=== PATIENT | male | born 1955 | race American Indian/Alaskan Native ===

== ENCOUNTER 2018-06-04 13:25 | Inpatient (IN) | payer MEDICAID ==
[2018-06-04] MEDS ORDERED: NACL 0.9% 1000 ML IV ONE (13:47)
--- NOTE | 2018-06-04 13:47 | Emergency Department Report ---
Blank Doc - Documentation Documentation: This is a 62-year-old male that presents with nausea vomiting and abdominal pain x1 month. This initial assessment diagnostic orders/clinical plan/treatment(s) is/are subject to change based on patient's health status, clinical progression and re- assessment by fellow clinical providers in the ED. Further treatment and workup at subsequent clinical providers discretion. Patient/guardians urged not to elope from ED s their condition may be serious if not clinically assessed and managed. Initial orders include: 1-Patient sent to MAIN ED for further evaluation and treatment 2- Code sepsis initiated 3- Labs 4- EKG 5- UA
[2018-06-04 14:43] LABS: Hematocrit 24.1 % (35.5-45.6); Hemoglobin 7.8 gm/dl (11.8-15.2); Mean Corpuscular HGB Conc 32 % (32-34); Mean Corpuscular Volume 99 fl (84-94); Platelet Count 446 K/mm3 (140-440); Red Blood Count 2.44 M/mm3 (3.65-5.03); Red Cell Distribution Width 19.5 % (13.2-15.2)
--- NOTE | 2018-06-04 14:53 | XRay Report ---
AP CHEST: HISTORY: Sepsis No comparison. Trace right pleural effusion or mild chronic right pleural thickening is noted at the right costophrenic angle. The lungs are mildly hyperinflated but clear. No evidence for pneumonia, mass or pneumothorax. Normal heart size and pulmonary vessels. The bony structures are osteopenic. Chronic left clavicle deformity is noted. IMPRESSION: Emphysematous changes. Chronic pleural thickening versus small right pleural effusion. No acute cardiopulmonary process is identified.
[2018-06-04 15:06] LABS: Alanine Aminotransferase 21 units/L (7-56); BUN/Creatinine Ratio 18; Blood Urea Nitrogen 9 mg/dL (9-20); Calcium 7.6 mg/dL (8.4-10.2); Hemolysis Index 50
[2018-06-04 15:48] LABS: Eosinophils % (Manual) 0 % (0.0-4.3); Total Cells Counted 100
[2018-06-04 15:49] LABS: Large Platelets 1+
[2018-06-04 15:50] LABS: Target Cells 2+
[2018-06-04 15:51] LABS: Anisocytosis 1+; Platelet Estimate Consistent w Auto
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
[2018-06-04] MEDS ORDERED: NACL 0.9% 1000 ML 1,000 ML IV ONE (18:05)
[2018-06-04 20:34] LABS: Bilirubin,Urine NEG (Negative); Blood,Urine NEG (Negative); Color,Urine Amber (Yellow); Mucus,Urine FEW /HPF
[2018-06-04] MEDS ORDERED: NACL 0.9% 1000 ML 1,000 ML ONE (21:39)
[2018-06-04] MEDS ORDERED: ZOSYN/NS 3.375GM/50ML 3.375 GM/50 ML BAG IV SCH (22:00)
[2018-06-04] MEDS ORDERED: SODIUM CHLORIDE FLUSH SYRINGE 10 ML IV PRN (22:02)
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
[2018-06-04] MEDS ORDERED: NACL 0.9% 1000 ML 1,000 ML IV SCH (23:00)
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
[2018-06-05] MEDS: FLAGYL PO SCH ×4 (06:20→22:21)
[2018-06-05 06:38] LABS: Basophils % (Auto) 0.3 % (0.0-1.8); Eosinophils % (Auto) 0.7 % (0.0-4.3); Lymphocytes # (Auto) 2.1 K/mm3 (1.2-5.4); Mean Corpuscular HGB Conc 34 % (32-34); Mean Corpuscular Volume 97 fl (84-94); Monocytes # (Auto) 0.6 K/mm3 (0.0-0.8); Monocytes % (Auto) 10.5 % (0.0-7.3); Platelet Count 339 K/mm3 (140-440)
[2018-06-05 06:46] LABS: BUN/Creatinine Ratio 14; Blood Urea Nitrogen 7 mg/dL (9-20); Calcium 6.5 mg/dL (8.4-10.2); Hemolysis Index 3
[2018-06-05 06:58] LABS: Hematocrit 17.4 % (35.5-45.6); Hemoglobin 5.9 gm/dl (11.8-15.2)
[2018-06-05] MEDS ORDERED: NACL 0.9% 500 ML 500 ML IV ONE (06:59)
[2018-06-05] MEDS ORDERED: LOVENOX SUB-Q SCH (10:00)
[2018-06-05] MEDS: SODIUM CHLORIDE FLUSH SYRINGE 10 ML IV SCH ×2 (10:14→22:18)
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
[2018-06-05] MEDS ORDERED: MAGNESIUM SULFATE 4GM/100ML 4 GM/100 ML BAG IV ONE (12:47)
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
[2018-06-05] MEDS: KCL 10MEQ/100ML 10 MEQ/100 ML BAG IV SCH ×2 (18:04→20:07)
[2018-06-05] MEDS: D5W/0.45% NACL/KCL 20 MEQ 20 MEQ/1,000 ML BAG IV SCH (18:14)
[2018-06-05 18:36] LABS: Hematocrit 29.7 % (35.5-45.6); Hemoglobin 10.7 gm/dl (11.8-15.2)
[2018-06-05] MEDS: PROTONIX IV SCH ×2 (19:14→22:18)
[2018-06-06] MEDS: FLAGYL PO SCH ×3 (05:23→21:36)
[2018-06-06] MEDS: D5W/0.45% NACL/KCL 20 MEQ 20 MEQ/1,000 ML BAG IV SCH (05:23)
[2018-06-06 06:41] LABS: Hematocrit 33.5 % (35.5-45.6); Hemoglobin 10.8 gm/dl (11.8-15.2); Mean Corpuscular HGB Conc 32 % (32-34); Mean Corpuscular Volume 99 fl (84-94); Platelet Count 283 K/mm3 (140-440); Red Blood Count 3.39 M/mm3 (3.65-5.03); Red Cell Distribution Width 19.7 % (13.2-15.2)
[2018-06-06 06:46] LABS: BUN/Creatinine Ratio 13; Blood Urea Nitrogen 5 mg/dL (9-20); Calcium 6.8 mg/dL (8.4-10.2); Hemolysis Index 29; Iron 36 ug/dL (49-181)
[2018-06-06 06:49] LABS: Basophils # (Auto) 0.1 K/mm3 (0.0-0.1); Basophils % (Auto) 0.8 % (0.0-1.8); Eosinophils # (Auto) 0.2 K/mm3 (0.0-0.4); Eosinophils % (Auto) 2.4 % (0.0-4.3); Lymphocytes # (Auto) 2.5 K/mm3 (1.2-5.4); Lymphocytes % (Auto) 35.1 % (13.4-35.0); Monocytes # (Auto) 0.6 K/mm3 (0.0-0.8); Monocytes % (Auto) 9.1 % (0.0-7.3)
[2018-06-06 07:02] LABS: Hepatitis B Surface Antigen Non-Reactive (Negative); Hepatitis C Virus Antibody Reactive (NonReactive)
[2018-06-06 08:02] LABS: Total Iron Binding Capacity 46 mcg/dL (250-450)
[2018-06-06] MEDS: PROTONIX IV SCH ×2 (11:37→21:36)
[2018-06-06] MEDS: SODIUM CHLORIDE FLUSH SYRINGE 10 ML IV SCH ×2 (11:38→21:37)
[2018-06-06] MEDS: LEVAQUIN 750MG/150ML 750 MG/150 ML BAG IV SCH ×2 (11:38)
--- NOTE | 2018-06-06 12:59 | Gastroenterology Progress Note ---
Assessment and Plan 1. Anemia - macrocytic anemia; mixed pattern with iron studies with possibly iron deficiency component. no signs of overt gi bleeding; s/p blood transfusions with stable h/h afterwards 2. Nausea/vomiting - seems improved, tolerating liquids; UGI with SBFT pending 3. Colitis - seen on imaging; diarrhea today with stool studies pending 4. History of hepatitis c Subjective Date of service: 06/06/18 Principal diagnosis: anemia, hypotension Interval history: pt seen and examined. denies abd pain; tolerating clears. reports having some liquid stools today after po intake. no gi bleeding Objective - Exam Narrative Exam: gen: chronically ill appearing male, nad cv: rrr Lungs: ctab, non labored Abd: soft, mild dist, nt, +bs Ext: no edema - Constitutional Vitals: Temp Pulse Resp BP Pulse Ox 98.3 F 105 H 20 110/81 99 06/06/18 08:03 06/06/18 12:20 06/06/18 10:00 06/06/18 12:20 06/06/18 12:20 - Labs CBC & Chem 7: 06/06/18 04:57 06/06/18 04:57 Labs: Laboratory Results - last 24 hr 06/05/18 06/05/18 06/06/18 07:00 18:23 04:57 WBC 7.1 RBC 3.39 L Hgb 10.7 L D 10.8 L Hct 29.7 L D 33.5 L MCV 99 H MCH 32 MCHC 32 RDW 19.7 H Plt Count 283 Lymph % (Auto) 35.1 H [place] % (Auto) 9.1 H Eos % (Auto) 2.4 Baso % (Auto) 0.8 Lymph # 2.5 [place] # 0.6 Eos # 0.2 Baso # 0.1 Seg Neutrophils % 52.6 Seg Neutrophils # 3.7 Sodium Potassium Chloride Carbon Dioxide Anion Gap BUN Creatinine Estimated GFR BUN/Creatinine Ratio Glucose Calcium Magnesium Iron TIBC Ferritin Vitamin B12 Folate Hepatitis A IgM Ab Hep Bs Antigen Hep B Core IgM Ab Hepatitis C Antibody Crossmatch See Detail 06/06/18 06/06/18 06/06/18 04:57 04:57 04:57 WBC RBC Hgb Hct MCV MCH MCHC RDW Plt Count Lymph % (Auto) [place] % (Auto) Eos % (Auto) Baso % (Auto) Lymph # [place] # Eos # Baso # Seg Neutrophils % Seg Neutrophils # Sodium 135 L Potassium 3.8 Chloride 109.5 H Carbon Dioxide 16 L Anion Gap 13 BUN 5 L Creatinine 0.4 L Estimated GFR > 60 BUN/Creatinine Ratio 13 Glucose 100 Calcium 6.8 L Magnesium 2.80 H Iron 36 L TIBC 46 L Ferritin 1653.0 H Vitamin B12 > 2000 H Folate Hepatitis A IgM Ab Hep Bs Antigen Hep B Core IgM Ab Hepatitis C Antibody Crossmatch 06/06/18 06/06/18 04:57 04:57 WBC RBC Hgb Hct MCV MCH MCHC RDW Plt Count Lymph % (Auto) [place] % (Auto) Eos % (Auto) Baso % (Auto) Lymph # [place] # Eos # Baso # Seg Neutrophils % Seg Neutrophils # Sodium Potassium Chloride Carbon Dioxide Anion Gap BUN Creatinine Estimated GFR BUN/Creatinine Ratio Glucose Calcium Magnesium Iron TIBC Ferritin Vitamin B12 Folate 11.57 Hepatitis A IgM Ab Non-reactive Hep Bs Antigen Non-reactive Hep B Core IgM Ab Non-reactive Hepatitis C Antibody Reactive A Crossmatch
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
[2018-06-07 05:48] LABS: Basophils % (Auto) 0.5 % (0.0-1.8); Eosinophils % (Auto) 0.2 % (0.0-4.3); Lymphocytes # (Auto) 2.1 K/mm3 (1.2-5.4); Lymphocytes % (Auto) 21.1 % (13.4-35.0); Mean Corpuscular HGB Conc 34 % (32-34); Mean Corpuscular Volume 95 fl (84-94); Monocytes # (Auto) 0.7 K/mm3 (0.0-0.8); Monocytes % (Auto) 6.9 % (0.0-7.3); Platelet Count 289 K/mm3 (140-440); Red Blood Count 3.47 M/mm3 (3.65-5.03); Red Cell Distribution Width 18.5 % (13.2-15.2)
[2018-06-07] MEDS: KCL 10 MEQ in D5NS 1,000 ML IV SCH (05:58)
[2018-06-07] MEDS: FLAGYL PO SCH ×3 (05:58→21:16)
[2018-06-07 06:05] LABS: BUN/Creatinine Ratio 4; Blood Urea Nitrogen 2 mg/dL (9-20); Calcium 6.8 mg/dL (8.4-10.2); Hemolysis Index 8
[2018-06-07] MEDS: LEVAQUIN 750MG/150ML 750 MG/150 ML BAG IV SCH (09:41)
[2018-06-07] MEDS: PROTONIX IV SCH ×2 (09:42→21:16)
[2018-06-07] MEDS: SODIUM CHLORIDE FLUSH SYRINGE 10 ML IV SCH ×2 (09:43→21:16)
[2018-06-07] MEDS ORDERED: NACL 0.9% 500 ML 500 ML IV ONE (10:15)
--- NOTE | 2018-06-07 11:10 | Gastroenterology Progress Note ---
Assessment and Plan 1. Anemia - macrocytic anemia; mixed pattern with iron studies with possibly iron deficiency component. no signs of overt gi bleeding; s/p blood transfusions with stable h/h afterwards 2. Nausea/vomiting - episode last night, tolerating some solids but with early satiety; UGI with SBFT pending for tomorrow. consider EGD based on progress 3. Colitis - on imaging but no significant diarrhea, abd pain or hematochezia; stool studies pending 4. History of hepatitis c Subjective Date of service: 06/07/18 Principal diagnosis: anemia, hypotension Interval history: pt seen and examined. no bm's today; tolerating po but having early satiety. de nies abd pain Objective - Exam Narrative Exam: Gen: chronically ill appearing, frail male CV: tachycardic, s1 and s2 Lungs: ctab abd: mild dist, nt, hypoactive bs - Constitutional Vitals: Temp Pulse Resp BP Pulse Ox 98.8 F 105 H 18 85/59 95 06/07/18 07:55 06/07/18 07:55 06/07/18 07:55 06/07/18 07:55 06/07/18 10:00 - Labs CBC & Chem 7: 06/07/18 04:39 06/07/18 04:39 Labs: Laboratory Results - last 24 hr 06/07/18 06/07/18 04:39 04:39 WBC 10.1 RBC 3.47 L Hgb 11.0 L Hct 33.0 L MCV 95 H MCH 32 MCHC 34 RDW 18.5 H Plt Count 289 Lymph % (Auto) 21.1 [place] % (Auto) 6.9 Eos % (Auto) 0.2 Baso % (Auto) 0.5 Lymph # 2.1 [place] # 0.7 Eos # 0.0 Baso # 0.0 Seg Neutrophils % 71.3 H Seg Neutrophils # 7.2 Sodium 136 L Potassium 3.6 Chloride 109.1 H Carbon Dioxide 17 L Anion Gap 14 BUN 2 L Creatinine 0.5 L Estimated GFR > 60 BUN/Creatinine Ratio 4 Glucose 104 H Calcium 6.8 L Magnesium 1.70
[2018-06-07] MEDS: SODIUM BICARBONATE PO SCH ×2 (13:26→21:16)
[2018-06-07] MEDS ORDERED: NACL 0.9% 500 ML 500 ML ONE (13:34)
[2018-06-07] MEDS ORDERED: MILK OF MAGNESIA PO PRN (13:59)
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
[2018-06-08] MEDS: FLAGYL PO SCH ×3 (05:15→21:29)
[2018-06-08] MEDS: TYLENOL PO PRN ×2 (05:15→11:32)
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
[2018-06-08] MEDS: SODIUM BICARBONATE PO SCH ×3 (11:29→21:30)
[2018-06-08] MEDS: LEVAQUIN 750MG/150ML 750 MG/150 ML BAG IV SCH (15:18)
[2018-06-08] MEDS: SODIUM CHLORIDE FLUSH SYRINGE 10 ML IV SCH ×2 (15:21→21:39)
[2018-06-08] MEDS: PROTONIX PO SCH ×2 (15:21→21:29)
[2018-06-08 16:15] LABS: Basophils % (Auto) 0.2 % (0.0-1.8); Eosinophils % (Auto) 0.1 % (0.0-4.3); Hematocrit 34.2 % (35.5-45.6); Hemoglobin 11.3 gm/dl (11.8-15.2); Lymphocytes % (Auto) 14.9 % (13.4-35.0); Mean Corpuscular HGB Conc 33 % (32-34); Mean Corpuscular Volume 97 fl (84-94); Monocytes # (Auto) 0.5 K/mm3 (0.0-0.8); Monocytes % (Auto) 3.6 % (0.0-7.3); Platelet Count 206 K/mm3 (140-440); Red Blood Count 3.53 M/mm3 (3.65-5.03); Red Cell Distribution Width 19.1 % (13.2-15.2)
[2018-06-08 16:30] LABS: Alanine Aminotransferase 8 units/L (7-56); Albumin 1.4 g/dL (3.9-5); BUN/Creatinine Ratio 6; Bilirubin,Direct 0.6 mg/dL (0-0.2); Blood Urea Nitrogen 3 mg/dL (9-20); Calcium 6.9 mg/dL (8.4-10.2); Hemolysis Index 12
--- NOTE | 2018-06-08 17:35 | Progress Note ---
Subjective Date of service: 06/08/18 Principal diagnosis: hep C, N/V Interval history: 62-year-old chronically ill-looking male who is awake and alert complains of feeling tired and weak. He denies any chest pain or shortness of breath complains of shortness of breath with minimal effort Lab results in GI note reviewed and appreciated Acute on chronic anemia -On IV Protonix -s/p transfusion with 2 units of packed red blood cells -H&H improved, will monitor -GI is planning on upper GI series with SBFT and possibly EGD Acute colitis -On IV antibiotics with levofloxacin and Flagyl -GI following Diffuse ileus -improved, pt is tolerating oral diet Severe protein calorie malnutrition -on oral supplements -Dietitian following Hypotension -Patient is borderline hypotensive today Ordered normal saline bolus of 500 mL Continue present IV fluids after the bolus will monitor Hypokalemia/Hypomagnesemia -8 as needed History of chronic hepatitis C infection Patient states that the he was treated at [facility] 3 months for his hepatitis C -For outpatient follow-up Leukocytosis: WBC is trending up Consider ID consult if it continues to trend up tomorrow Severe malnutrition: Nutrition consult Prophylaxis -DVT prophylaxis with SCD Disposition: Probably decided Objective HEENT normocephalic pupils are round reacting to light throat is clear Neck is supple no significant adenopathy no JVD Lungs diminished breath sounds but clear to auscultation Heart S1-S2 regular rate and rhythm Abdomen is soft Extremities: Bilateral 2+ leg edema, and left arm and hand edema Objective - Constitutional Vitals: Vital Signs - 12hr 06/08/18 06/08/18 07:20 12:06 Temperature 97.7 F 98.1 F Pulse Rate 109 H 109 H Respiratory 20 18 Rate Blood Pressure 67/44 83/56 O2 Sat by Pulse 93 82 L Oximetry - Labs CBC & Chem 7: 06/08/18 16:00 06/08/18 16:00 Labs: Abnormal lab results 06/08/18 06/08/18 Range/Units 16:00 16:00 WBC 13.7 H (4.5-11.0) K/mm3 RBC 3.53 L (3.65-5.03) M/mm3 Hgb 11.3 L (11.8-15.2) gm/dl Hct 34.2 L (35.5-45.6) % MCV 97 H (84-94) fl RDW 19.1 H (13.2-15.2) % Seg Neutrophils % 81.2 H (40.0-70.0) % Seg Neutrophils # 11.1 H (1.8-7.7) K/mm3 Potassium 3.4 L (3.6-5.0) mmol/L Chloride 109.2 H (98-107) mmol/L Carbon Dioxide 17 L (22-30) mmol/L BUN 3 L (9-20) mg/dL Creatinine 0.5 L (0.8-1.5) mg/dL Glucose 170 H (75-100) mg/dL Calcium 6.9 L (8.4-10.2) mg/dL Direct Bilirubin 0.6 H (0-0.2) mg/dL Total Protein 4.3 L (6.3-8.2) g/dL Albumin 1.4 L (3.9-5) g/dL
[2018-06-08] MEDS ORDERED: K-DUR PO ONE (18:00)
[2018-06-08] MEDS ORDERED: NACL 0.9% 500 ML 500 ML IV ONE (18:00)
[2018-06-08] MEDS ORDERED: DUONEB *Not for PRN Use IH ONE (19:54)
[2018-06-08] MEDS ORDERED: SOLU-Medrol IV ONE (19:57)
[2018-06-08] MEDS ORDERED: VANCOMYCIN/NS 1 GM/250 ML 1 GM/250 ML BAG IV ONE (20:34)
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
[2018-06-08] MEDS: PROTONIX IV SCH (21:30)
[2018-06-08] MEDS: KCL 10 MEQ in D5NS 1,000 ML IV SCH (22:53)
[2018-06-09] MEDS: FLAGYL PO SCH ×4 (05:34→21:30)
[2018-06-09 05:37] LABS: Hematocrit 34.5 % (35.5-45.6); Hemoglobin 11.7 gm/dl (11.8-15.2); Mean Corpuscular HGB Conc 34 % (32-34); Mean Corpuscular Volume 95 fl (84-94); Platelet Count 181 K/mm3 (140-440); Red Blood Count 3.63 M/mm3 (3.65-5.03); Red Cell Distribution Width 18.8 % (13.2-15.2)
[2018-06-09 06:00] LABS: BUN/Creatinine Ratio 6; Blood Urea Nitrogen 3 mg/dL (9-20); Calcium 6.9 mg/dL (8.4-10.2); Hemolysis Index 16
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
--- NOTE | 2018-06-09 09:22 | XRay Report ---
AP ABDOMEN: HISTORY: Nausea and vomiting. This exam was a oncology rep specialist image for an upper GI series with small bowel follow-through. The image demonstrates mild gaseous distention of bowel loops throughout the abdomen. The patient refused the examination after multiple unsuccessful attempts at nasogastric tube placement by the patient's nurse. IMPRESSION: Mild gaseous distention of bowel loops in the abdomen. Upper GI series and small bowel follow-through was refused by the patient.
[2018-06-09] MEDS: LEVAQUIN 750MG/150ML 750 MG/150 ML BAG IV SCH (10:53)
[2018-06-09] MEDS: PROTONIX PO SCH ×2 (10:53→21:30)
[2018-06-09] MEDS: SODIUM BICARBONATE PO SCH (10:53)
[2018-06-09] MEDS: SODIUM CHLORIDE FLUSH SYRINGE 10 ML IV SCH ×2 (10:54→21:30)
[2018-06-09] MEDS: PERCOCET 5/325 PO PRN (10:58)
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
--- NOTE | 2018-06-09 12:22 | Event Note ---
Date: 06/09/18 Asked to evaluate/comment on patient as they were transferred to ICU as an IMCU patient. Not exactly sure as to why they were moved. Clinically stable. No acute indication for ICU. Does not appear to need step down as well. I have asked the IMS attending to transfer patient out to floor. Metabolic acidosis could be explained by chronic vomiting and diarrhea for the last six weeks. Wean FiO2 as tolerated. No consult was placed officially but if they wish for us to follow on the floor, will be happy if consult is place.
[2018-06-09] MEDS ORDERED: LIDOCAINE VISCOUS 2% PO ONE (13:44)
[2018-06-09] MEDS: ZOFRAN IV PRN (14:49)
--- NOTE | 2018-06-09 17:18 | XRay Report ---
FINAL REPORT EXAM: XR ABDOMEN 1V AP HISTORY: Dobhoff placement TECHNIQUE: Limited supine view of the abdomen PRIORS: None. FINDINGS: Feeding tube terminates in the proximal stomach. The bowel gas pattern is nonspecific. No free air is identified. Soft tissues have no evidence for m ass shadows or calcifications. The bony structures are intact. Diffuse interstitial prominence throughout the lungs with bilateral effusions are noted. IMPRESSION: Feeding tube terminates in the proximal stomach. Nonspecific, nonobstructive bowel gas pattern with no acute process noted.
[2018-06-09] MEDS: KCL 10 MEQ in D5NS 1,000 ML IV SCH (22:06)
[2018-06-10 05:55] LABS: Hematocrit 31.4 % (35.5-45.6); Hemoglobin 10.3 gm/dl (11.8-15.2); Mean Corpuscular HGB Conc 33 % (32-34); Mean Corpuscular Volume 97 fl (84-94); Platelet Count 142 K/mm3 (140-440); Red Blood Count 3.23 M/mm3 (3.65-5.03); Red Cell Distribution Width 19.3 % (13.2-15.2)
[2018-06-10 06:19] LABS: Alanine Aminotransferase 12 units/L (7-56); Albumin 1.3 g/dL (3.9-5); BUN/Creatinine Ratio 6; Blood Urea Nitrogen 4 mg/dL (9-20); Calcium 7.3 mg/dL (8.4-10.2); Hemolysis Index 3
[2018-06-10 06:35] LABS: Anisocytosis 1+; Band Neutrophils # (Manual) 0.4 K/mm3; Basophils % (Manual) 0 % (0.0-1.8); Eosinophils % (Manual) 0 % (0.0-4.3); Total Cells Counted 100
[2018-06-10 06:36] LABS: Burr Cells 1+; Helmet Cells Few; Target Cells Rare
[2018-06-10] MEDS: FLAGYL PO SCH ×3 (06:57→23:02)
[2018-06-10] MEDS: LOPRESSOR PO SCH ×2 (10:23→23:02)
[2018-06-10] MEDS: PROTONIX PO SCH ×2 (10:23→23:03)
[2018-06-10] MEDS: SODIUM CHLORIDE FLUSH SYRINGE 10 ML IV SCH ×2 (10:23→23:03)
[2018-06-10] MEDS: LEVAQUIN 750MG/150ML 750 MG/150 ML BAG IV SCH (10:26)
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
[2018-06-10] MEDS ORDERED: ATIVAN PO PRN (16:00)
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
[2018-06-10] MEDS ORDERED: ATIVAN ONE (19:08)
[2018-06-10] MEDS ORDERED: NACL 0.9% 1000 ML 1,000 ML ONE (20:17)
--- NOTE | 2018-06-10 20:21 | XRay Report ---
FINAL REPORT PROCEDURE: XR CHEST 1V AP TECHNIQUE: Chest radiograph anteroposterior view. CPT 46920 HISTORY: ETT PLACEMENT COMPARISON: 06/08/2018 FINDINGS: Heart: Normal. Mediastinum/Vessels: Projecting over the midline superior mediastinum there is a 8 millimeter radiopa que density. If this is not overlying the patient, this could be a foreign body in the distal trachea or esophagus. Lungs/Pleural space: Patchy bilateral lung base airspace opacities a pre air mildly improved compared to the prior study. Small bilateral pleural effusions. Bony thorax: No acute osseous abnormality. Life support devices: The endotracheal tube tip projects 3 centimeters superior to the dionna. There is an enteric tube, the tip in the gastric fundus. If this is to be used for feeding, this should be repositioned into the distal stomach IMPRESSION: Endotracheal tube tip projects 3 centimeters superior to the dionna. There is a dense 8 millimeter radiopaque density projecting over the distal trachea. If this is not o utside the patient, this could be a foreign body within the trachea or esophagus. Repeat radiograph c ould be obtained to verify finding. Findings were discussed with Dr. Treadwell by telephone at 7:30 p.m. central standard time on 06/10/2018.
--- NOTE | 2018-06-10 22:34 | XRay Report ---
FINAL REPORT PROCEDURE: XR ABDOMEN 1V AP TECHNIQUE: Abdominal radiograph, single supine AP view. HISTORY: feeding tube placement COMPARISON: No prior studies are available for comparison. FINDINGS: Feeding tube is terminating at the gastric antrum. Visualized small bowel loops appear dilated. Bilat eral lungs continue to demonstrate diffuse reticular pattern as seen on the prior studies. Mild degre e bilateral pleural effusions are again noted. Endotracheal tube is terminating about 2.6 centimeters above the dionna. Right jugular central line is terminating at the level of proximal superior vena c santosh.. IMPRESSION: Feeding tube is terminating at the level of gastric antrum. Diffuse reticular pattern of bilateral lungs with mild bilateral pleural effusions are again noted wi thout interval change.
--- NOTE | 2018-06-10 22:37 | XRay Report ---
FINAL REPORT PROCEDURE: XR CHEST 1V AP TECHNIQUE: Chest radiograph anteroposterior view. CPT 42379 HISTORY: central line COMPARISON: No prior studies are available for comparison. FINDINGS: Feeding tube is terminating at the gastric antrum. Visualized small bowel loops appear dilated. Bilat eral lungs continue to demonstrate diffuse reticular pattern as seen on the prior studies. Mild degre e bilateral pleural effusions are again noted. Endotracheal tube is terminating about 2.6 centimeters above the dionna. Right jugular central line is terminating at the level of proximal superior vena c santosh. An irregular metallic density measuring about 9 millimeters is noted in the midline projected ov er T11 vertebral body adjacent to the feeding tube.. IMPRESSION: Right jugular central line is terminating at the level of proximal superior vena cava. Diffuse reticular pattern of bilateral lungs with mild bilateral pleural effusions are again noted wi thout interval change. ARDS cannot be excluded A 9 millimeter irregular metallic density at the level of gastroesophageal junction adjacent to the f eeding tube may represent a a broken tooth in the appropriate clinical setting.
[2018-06-10] MEDS: LEVOPHED DRIP 4 MG/NS 250 ML 4 MG/250 ML BAG IV SCH (22:45)
--- NOTE | 2018-06-10 23:23 | Procedure Note ---
Date of procedure: 06/10/18 Pre-op diagnosis: cardiac arrest Post-op diagnosis: same Procedure: Right IJ Central Line placement under ultrasound guidance. Patient prepped and draped in the usual sterile fashion. timeout taken to verify correct patient, procedure, and operative site. Ultrasound utilized to identify the RIJV. Local anesthesia with 1% Lidocaine. Seldinger technique used to access the RIJV. Guidewire placed into the RIJV and the seeker needle removed over the wire. Scalpel used to incise the skin. Dilator placed over the guidewire and removed. Triple lumen catheter placed into RIJV without difficulty and sewn in place. All 3 ports flush and draw with ease. biopatch placed at incision site. Postop CXR did not show pneumothorax. Central line in SVC. Anesthesia: local Surgeon: SAMUEL URIBE Estimated blood loss: minimal Pathology: none Condition: critical Disposition: ICU Anesthesia: local Surgeon: SAMUEL URIBE Estimated blood loss: minimal Pathology: none Condition: critical Disposition: ICU
--- NOTE | 2018-06-10 23:23 | Event Note ---
Date: 06/10/18 Code jennifer called. Presented to bedside. Pt treated AMW ACLS protocol with return of perfusing rhythm and spontaneous but labored respiration. Pt transferred to ICU. 65 minutes critical care time dedicated to patient care. Discussed care plan with family. Pt family acknowledges understanding and agreement with care plan.
[2018-06-11] MEDS ORDERED: VANCOMYCIN/NS 1 GM/250 ML 1 GM/250 ML BAG IV ONE
[2018-06-11] MEDS: KCL 10 MEQ in D5NS 1,000 ML IV SCH ×2 (01:02→16:55)
[2018-06-11] MEDS: ZOFRAN IV PRN (01:28)
[2018-06-11] MEDS: PERCOCET 5/325 PO PRN (01:28)
[2018-06-11 04:51] LABS: Hemoglobin 8.9 gm/dl (11.8-15.2); Mean Corpuscular HGB Conc 32 % (32-34); Mean Corpuscular Volume 101 fl (84-94); Red Blood Count 2.78 M/mm3 (3.65-5.03)
[2018-06-11 04:58] LABS: Platelet Count 90 K/mm3 (140-440); Red Cell Distribution Width 20.1 % (13.2-15.2)
[2018-06-11 05:08] LABS: Alanine Aminotransferase 13 units/L (7-56); Albumin 1.2 g/dL (3.9-5); BUN/Creatinine Ratio 9; Blood Urea Nitrogen 6 mg/dL (9-20); Calcium 6.7 mg/dL (8.4-10.2); Hemolysis Index 8
[2018-06-11] MEDS: FLAGYL PO SCH (05:29)
[2018-06-11 05:33] LABS: Anisocytosis 1+; Band Neutrophils # (Manual) 0.2 K/mm3; Basophils % (Manual) 0 % (0.0-1.8); Eosinophils % (Manual) 0 % (0.0-4.3); Monocytes % (Manual) 0 % (0.0-7.3); Myelocytes # (Manual) 0.2 K/mm3; Total Cells Counted 100
[2018-06-11 05:34] LABS: Burr Cells 1+; Ovalocytes 1+; Platelet Estimate Appears Decreased; Spherocytes Rare; Target Cells Few
[2018-06-11] MEDS: LEVOPHED DRIP 4 MG/NS 250 ML 4 MG/250 ML BAG IV SCH ×6 (06:12→22:08)
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
[2018-06-11] MEDS ORDERED: MAGNESIUM SULFATE 4GM/100ML 4 GM/100 ML BAG IV ONE (08:47)
[2018-06-11] MEDS: LOPRESSOR PO SCH ×2 (09:54→22:00)
[2018-06-11] MEDS: PROTONIX PO SCH (09:58)
[2018-06-11] MEDS: SODIUM CHLORIDE FLUSH SYRINGE 10 ML IV SCH ×2 (09:59→22:01)
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
[2018-06-11] MEDS: NACL 0.9% 1000 ML 1,000 ML IV SCH ×2 (12:15→13:46)
--- NOTE | 2018-06-11 13:10 | XRay Report ---
AP ABDOMEN: HISTORY: Nasogastric tube placement. The feeding tube is been replaced with a nasogastric tube. The distal tip of the nasogastric tube is folded upon itself in the antrum of the stomach. There is mild gaseous distention of bowel loops throughout the abdomen most consistent with an ileus. IMPRESSION: The nasogastric tube terminates in the distal stomach. Possible ileus.
[2018-06-11] MEDS: PROTONIX IV SCH ×2 (13:14→21:59)
[2018-06-11] MEDS: FLAGYL 500 MG/100 ML 500 MG/100 ML BAG IV SCH ×2 (13:18→21:59)
--- NOTE | 2018-06-11 14:44 | XRay Report ---
X-RAY G-TUBE STUDY History: Nausea and vomiting Findings: A modified upper GI was performed to evaluate for GI obstruction. The patient was unstable and unable to take oral contrast. Approximately 100 cc of Gastrografin contrast agent was injected through a nasogastric tube. There is normal opacification of the stomach. No gastric distention is appreciated. Delayed images demonstrate emptying of the oral contrast into borderline caliber proximal small bowel loops. No gastric outlet obstruction is appreciated. Impression: No evidence for gastric outlet obstruction.
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
[2018-06-11] MEDS ORDERED: ADRENALIN ONE (17:30)
[2018-06-11] MEDS ORDERED: Vasostrict 20 UNIT in NACL 0.9% 100 ML IV SCH (18:00)
[2018-06-11] MEDS ORDERED: NACL 0.9% 1000 ML 1,000 ML IV SCH (18:47)
[2018-06-11] MEDS ORDERED: SODIUM BICARBONATE IV ONE ×2 (19:00→20:00)
[2018-06-12] MEDS: LEVOPHED DRIP 4 MG/NS 250 ML 4 MG/250 ML BAG IV SCH ×4 (00:15→08:41)
[2018-06-12] MEDS ORDERED: INTROPIN DRIP 800 MG/D5W 250 ML 800 MG/250 ML BAG IV SCH (01:00)
[2018-06-12] MEDS ORDERED: SODIUM BICARBONATE IV ONE (04:21)
[2018-06-12] MEDS ORDERED: SODIUM BICARBONATE 150 MEQ in D5W 1,000 ML IV SCH (05:00)
[2018-06-12] MEDS: FLAGYL 500 MG/100 ML 500 MG/100 ML BAG IV SCH (05:20)
[2018-06-12 05:24] LABS: Hematocrit 27.4 % (35.5-45.6); Hemoglobin 8.5 gm/dl (11.8-15.2); Mean Corpuscular HGB Conc 31 % (32-34); Mean Corpuscular Volume 102 fl (84-94); Red Blood Count 2.68 M/mm3 (3.65-5.03)
[2018-06-12 05:35] LABS: Platelet Count 75 K/mm3 (140-440)
[2018-06-12 05:48] LABS: Alanine Aminotransferase 15 units/L (7-56); Albumin 1.1 g/dL (3.9-5); BUN/Creatinine Ratio 6; Blood Urea Nitrogen 7 mg/dL (9-20); Calcium 6.4 mg/dL (8.4-10.2); Hemolysis Index 5
[2018-06-12 06:19] LABS: Anisocytosis 1+; Band Neutrophils # (Manual) 1.3 K/mm3; Basophils % (Manual) 0 % (0.0-1.8); Burr Cells 2+; Macrocytosis 1+; Monocytes % (Manual) 0 % (0.0-7.3); Myelocytes # (Manual) 0.6 K/mm3; Total Cells Counted 100
[2018-06-12 06:20] LABS: Hypochromasia Few; Ovalocytes 1+; Platelet Estimate Appears Decreased; Target Cells Rare
[2018-06-12] MEDS ORDERED: NEO-SYNEPHRINE 100 MG in NACL 0.9% 90 ML IV SCH (08:00)
[2018-06-12] MEDS ORDERED: PANCREAZE DR 10,500 UNIT FEEDTUBE PRN (08:23)
[2018-06-12] MEDS ORDERED: SIMPLE SYRUP FEEDTUBE PRN ×2 (08:23)
[2018-06-12] MEDS ORDERED: SODIUM BICARBONATE FEEDTUBE PRN (08:23)
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
[2018-06-12] MEDS ORDERED: ADRENALIN 16 MG in NACL 0.9% 250ML 234 ML IV SCH (10:00)
[2018-06-12] MEDS ORDERED: LEVOPHED 8 MG in NACL 0.9% 250ML 242 ML IV SCH (10:00)
--- NOTE | 2018-06-12 11:55 | Death Summary ---
Summary - Providers Date of service: 06/12/18 Consults: 06/04/18 22:02 Consult to Physician [CONS] Routine Comment: Consulting Provider: TRES IBARRA Physician Instructions: Reason For Exam: hep c, n/v x 6 weeks 06/05/18 12:51 Consult to Dietitian/Nutrition [CONS] Routine Physician Instructions: Reason For Exam: Reason for Consult: Malnutrition 06/10/18 19:56 Consult to Physician [CONS] Urgent Comment: Consulting Provider: SEAN OSPINA Physician Instructions: Reason For Exam: ccu admit Attending: WILFRED HODGES - summary Date of admission: 06/04/18 22:02 Date of : 06/12/18 (10:16 AM) Significant findings: 62-year-old male patient with multiple medical problems was admitted through emergency room with hypotension and generalized weakness Initial workup was consistent with severe anemia requiring blood transfusion for acute colitis and small bowel ileus Patient was evaluated by GI, symptomatically managed, had diffuse colitis evaluated by GI on multiple antibiotics On 06/10/2018 patient had a cardiac arrest and code was called and CPR done by ACLS protocol transferred the patient to ICU after intubation, Patient was evaluated by pulmonary critical, optimized medications, continued to deteriorate with severe sepsis, diffuse colitis, pneumonia and respiratory failure, patient also had severe septic shock on multiple pressors. Patient is critically ill with very poor prognosis, on 06/12/2018 I discussed with next of kin patient's sister Catalina Cid, plan of care and advanced directives and CODE STATUS, Ms. Catalina Cid is the sister of the patient requested DO NOT RESUSCITATE.. Later that afternoon patient went into cardiac arrest, with no cardiopulmonary activity Patient was pronounced by critical care physician Dr. Ospina . Time of : 06/12/2018 at 10:16 AM Final diagnosis: --Cardiorespiratory arrest; patient -- Cardiac arrest s/p CPR; Ventilatory support, transferred to ICU Cardiology, pulmonary evaluated --Acute Respratory failure ; requiring intubation Duonebs as needed,IV antibiotics.pulm /Cr consulted -- severe septic shock; on multiple pressors Remains hypotensive, continue supportive care, very poor prognosis --Leukocytosis/sepsis Continue empiric antibiotics and follow cultures ID evaluation if needed --Diffuse colitis; evaluated by GI On antibiotics, supportive care, Patient is unstable to repeat CT abdomen and pelvis --Lt LL pneumonia: cont IV levaquin, supportive care,f/u cultures,neg to date --Acute on chronic anemia: Hb 5.9-11.7-8.9-8.5 s/p 2 units of PRBC transfusion f/u upper GI series with SBFT and possibly EGD --Acute colitis cont IV antibiotics with levofloxacin and Flagyl GI w/u in progress --Severe sepsis/colitis/pneumonia which was treated --Diffuse ileus : POA,improved, now intubated on vent --Severe protein calorie malnutrition Tube feeding, supportive care Dietitian following --Hypomagnesemia; corrected --History of chronic hepatitis C infection Patient states that the he was treated at [place] 3 months for his hepatitis C --Thrombocytopenia: h/o hep c consider hemat consult --Severe malnutrition: Dietitian following --DVT prophylaxis with SCD No pharmacological anticoag due to severe anemia/thrombocytopenia Cardiac arrest the second time,DNR status, Procedures/treatments rendered: Central line placement G-tube study Pertinent studies: Chest x-ray and CT abdomen pelvis upper GI and small bowel x-ray abdominal x-ray Disposition: - Final diagnosis (1) Acute respiratory failure with hypoxia Note: Final diagnosis: (2) Septic shock Note: Final diagnosis: (3) Severe sepsis Note: Final diagnosis: (4) Cardiac arrest Note: Final diagnosis: (5) Colitis Note: Final diagnosis: (6) Severe anemia Note: Final diagnosis: (7) History of hepatitis C Note: Final diagnosis: (8) Thrombocytopenia Note: Final diagnosis: (9) Severe malnutrition Note: Final diagnosis:
--- NOTE | 2018-06-12 12:26 | Event Note ---
Date: 06/12/18 Time of at 10:16. Patient asystole on monitor. Evaluated patient. NO pulse. Only respirations generated by ventilator.
[2018-06-12 15:52] VITALS: BP 57/30
== END 2018-06-12 10:13 | DRG 871 ==
LOC: ED 13:25 → 3A 22:02 → 4A 23:49 → CC1 06-08 22:08 → 4A 06-09 18:25 → CC1 06-10 19:02
PROVIDERS: ADMIT Internal Medicine; ATTEND Internal Medicine
PROC: 30233N1 Transfusion of Nonautologous Red Blood Cells into Peripheral Vein, Percutaneous Approach (ICD-10-PCS; 2018-06-05)
PROC: 5A09357 Assistance with Respiratory Ventilation, Less than 24 Consecutive Hours, Continuous Positive Airway Pressure (ICD-10-PCS; 2018-06-08)
PROC: 4A033R1 Measurement of Arterial Saturation, Peripheral, Percutaneous Approach (ICD-10-PCS; 2018-06-08)
PROC: 5A09357 Assistance with Respiratory Ventilation, Less than 24 Consecutive Hours, Continuous Positive Airway Pressure (ICD-10-PCS; 2018-06-09)
PROC: 0BH17EZ Insertion of Endotracheal Airway into Trachea, Via Natural or Artificial Opening (ICD-10-PCS; principal; 2018-06-10)
PROC: 5A1945Z Respiratory Ventilation, 24-96 Consecutive Hours (ICD-10-PCS; 2018-06-10)
PROC: 5A09357 Assistance with Respiratory Ventilation, Less than 24 Consecutive Hours, Continuous Positive Airway Pressure (ICD-10-PCS; 2018-06-10)
PROC: 5A12012 Performance of Cardiac Output, Single, Manual (ICD-10-PCS; 2018-06-10)
PROC: 02HV33Z Insertion of Infusion Device into Superior Vena Cava, Percutaneous Approach (ICD-10-PCS; 2018-06-10)
PROC: B548ZZA Ultrasonography of Superior Vena Cava, Guidance (ICD-10-PCS; 2018-06-10)
PROC: 0D9670Z Drainage of Stomach with Drainage Device, Via Natural or Artificial Opening (ICD-10-PCS; 2018-06-11)
DX: A41.9 Sepsis, unspecified organism (principal); R65.21 Severe sepsis with septic shock; E43 Unspecified severe protein-calorie malnutrition; J96.00 Acute respiratory failure, unspecified whether with hypoxia or hypercapnia; J18.1 Lobar pneumonia, unspecified organism; I95.9 Hypotension, unspecified; K56.7 Ileus, unspecified; R62.7 Adult failure to thrive; K52.9 Noninfective gastroenteritis and colitis, unspecified; E86.9 Volume depletion, unspecified; D53.9 Nutritional anemia, unspecified; E87.2 Acidosis; B18.2 Chronic viral hepatitis C; Z66 Do not resuscitate; D69.6 Thrombocytopenia, unspecified; F17.210 Nicotine dependence, cigarettes, uncomplicated; E87.6 Hypokalemia; E83.42 Hypomagnesemia; I46.9 Cardiac arrest, cause unspecified; Z68.1 Body mass index [BMI] 19.9 or less, adult; Z71.6 Tobacco abuse counseling; Z82.49 Family history of ischemic heart disease and other diseases of the circulatory system; Z79.899 Other long term (current) drug therapy
CPT/HCPCS: 31500; 36415; 36600; 71045; 74018; 74176; 80048; 80053; 80074; 80076; 81001; 82140; 82270; 82550; 82607; 82728; 82747; 82803; 82962; 83550; 83735; 84100; 84484; 85007; 85014; 85018; 85025; 85027; 86850; 86900; 86901; 86920; 87040; 87045; 87070; 87086; 87205; 87400; 87517; 92950; 93005; 93010; 94002; 94003; 94640; 94660; 94760; 96360; 96361; 99406; G0378; C9113; J0171; J1265; J1956; J2060; J2370; J2405; J2543; J2920; J3370; J3475; J3480; J7030; J7040; J7042; J7050; J7070; P9016; Q9967